=== PATIENT | female | born 1970 | race Caucasian/White ===

== ENCOUNTER 2017-08-24 13:02 | Outpatient (CLI) | payer BC ==
--- NOTE | 2017-08-24 16:21 | RAD ---
CHEST 2 VIEWS: HISTORY: Cough. COMPARISON: 08/18/13. FINDINGS: Cardiac silhouette and pulmonary vasculature are unremarkable. Mediastinum is midline. There is no confluent airspace consolidation, pneumothorax, or pleural fluid. IMPRESSION: No active cardiopulmonary abnormalities are demonstrated. POS: [facility]
== END 2017-08-24 13:03 | disposition home or self-care (01) ==
LOC: SCSRAD 13:02
PROVIDERS: ATTEND Family Medicine
DX: R05 Cough (principal); R06.2 Wheezing
CPT/HCPCS: 71046

== ENCOUNTER 2018-03-13 13:36 | Inpatient (IN) | payer BC ==
[2018-03-13] MEDS ORDERED: ISOVUE-370 76%-LOCM 1 ML ONE (14:13)
[2018-03-13 14:15] LABS: Bilirubin Negative (Negative); Blood, Urine Negative (Negative); Clarity CLEAR (Clear); Glucose, Urine (Dipstick) Negative (Negative); Leukocyte Negative (Negative); Nitrite Negative (Negative); Protein, Urine (Dipstick) Negative (Neg-Trace); Specific Gravity, Urine 1.004 (1.002-1.036); Urobilinogen 0.2 mg/dL (0.2-1.0); pH, Urine 6.5 (5.0-9.0)
[2018-03-13 14:24] LABS: Hemoglobin 12.9 g/dL (12.0-16.0); Mean Corpuscular HGB CONC 33.1 g/dL (32.0-36.0); Mean Corpuscular Hemoglobin 21.6 pg (27.0-31.0); Mean Corpuscular Volume 65.3 fL (78.0-98.0); Mean Platelet Volume 7.5 fL (7.4-10.4); Platelet Count 470 thou/uL (130-400); RBC Distribution Width 14.9 % (11.5-14.5); Red Blood Cell (RBC) Count 5.96 mill/uL (4.20-5.40); White Blood Cell (WBC) Count 17.3 thou/uL (4.8-10.8)
[2018-03-13 14:44] LABS: ALT (SGPT) 30 U/L (8-55); AST (SGOT) 21 U/L (5-34); Alkaline Phosphatase 93 U/L (40-150); Anion Gap 15 mmol/L (10-20); BUN (Urea Nitrogen) 12 mg/dL (7.0-18.7); Bilirubin, Total 0.9 mg/dL (0.2-1.2); Calc. Creatinine Clearance 0 mL/min (70-130); Calcium 9.6 mg/dL (7.8-10.44); Carbon Dioxide 24 mmol/L (22-29); Chloride 102 mmol/L (98-107); Estimated GFR-MDRD 85; Globulin 3.6 g/dL (2.4-3.5); Glucose 108 mg/dL (70-105); Lipase 17 U/L (8-78); Potassium 3.8 mmol/L (3.5-5.1); Protein, Total 7.6 g/dL (6.0-8.3); Sodium 137 mmol/L (136-145)
[2018-03-13 14:47] LABS: Anisocytosis SLIGHT = 6-15 cells (100X) (0-5/hpf); Band 2 % (5-11); Hypochromia SLIGHT = 6-15 cells (100X) (0-5/hpf); Lymphocytes 16 % (21-51); MDiff Complete? YES; Microcytosis SLIGHT = 6-15 cells (100X) (0-5/hpf); Monocytes 1 % (0-10); Neutrophil 79 % (42-75); Ovalocytes SLIGHT = 2-5 cells (100X) (0-1/hpf); PLT Morphology Comment Appears Increased; Polychromasia SLIGHT = 2-3 cells (100X) (0-2/hpf); Reactive Lymphocytes 2 % (0-10); Target Cells SLIGHT = 2-5 cells (100X) (0-1/hpf)
[2018-03-13] MEDS ORDERED: Morphine 4 MG/ML VIAL ONE ×3 (16:13→18:26)
[2018-03-13] MEDS ORDERED: cefOXitin 2 GM in Sodium Chloride 0.9% 100 ML IVPB SCH (18:45)
--- NOTE | 2018-03-13 19:04 | CT ---
CT ABDOMEN AND PELVIS WITH IV CONTRAST 03/13/18 HISTORY: Right lower quadrant abdominal pain with fever. Pain radiates to back. Stabbing pain which worsens up on movement. FINDINGS: The appendix is dilated measuring 13 mm with mild enhancement of the benoit of the appendix. There is an increased density focus seen within the proximal appendix which is probably related to an appendic olith as opposed to contrast. There is periappendiceal inflammatory stranding present. There is no fl uid collection seen to suggest an abscess, and no free intraperitoneal gas is present. Postsurgical change related to cholecystectomy are again present. The lung bases, liver, spleen, pancreas, bilateral adrenal glands, kidneys, and urinary bladder demon strate a normal CT appearance. Opacified small bowel is normal in appearance as well as normal in caliber. There is evidence of prio r hysterectomy. Mild degenerative changes are seen in the spine. IMPRESSION: 1. Acute appendicitis without evidence of abscess formation. 2. Post cholecystectomy changes. 3. Mild diminished attenuation of the liver. While noncontrast imaging was not performed, this c ould potentially be related to mild fatty infiltration of the liver. 4. Hysterectomy. 5. Above findings discussed with Dr. Rose on 03/13/18 at 1804 hours. POS: [facility]
[2018-03-13] MEDS ORDERED: Fentanyl 100 MCG/2 ML VIAL ONE ×3 (20:01→23:25)
[2018-03-13] MEDS ORDERED: HYDROmorphone 0.5 MG/0.5 ML SYRINGE ONE ×2 (20:34→21:09)
[2018-03-13] MEDS ORDERED: Bupivacaine/Epinephrine 0.25% 30 ML VIAL ONE (21:05)
[2018-03-13] MEDS ORDERED: Promethazine HCl 25 MG/ML VIAL ONE (21:09)
[2018-03-13] MEDS ORDERED: SUGAMMADEX SODIUM 200 MG/2 ML VIAL ONE (22:42)
[2018-03-13] MEDS ORDERED: Naloxone HCl 0.4 mg/ml Vial ONE (23:03)
[2018-03-13] MEDS ORDERED: Promethazine HCl 25 MG/ML VIAL SLOW IVP PRN (23:09)
[2018-03-13] MEDS ORDERED: Ondansetron HCl/PF 4 MG/2 ML Vial IVP PRN (23:09)
[2018-03-13] MEDS ORDERED: Promethazine HCl 25 MG/ML VIAL IM PRN (23:09)
[2018-03-14] MEDS ORDERED: Acetaminophen 325 MG TAB PO PRN (00:35)
[2018-03-14] MEDS ORDERED: Ondansetron HCl/PF 4 MG/2 ML Vial IVP PRN (00:35)
[2018-03-14] MEDS ORDERED: traMADol HCl 50 MG TAB PO PRN ×2 (00:35)
[2018-03-14] MEDS ORDERED: hydrALAZINE 20 MG/ML VIAL SLOW IVP PRN (00:35)
[2018-03-14] MEDS ORDERED: Promethazine HCl 25 MG/ML VIAL IM PRN (00:35)
[2018-03-14] MEDS ORDERED: Dextrose 5% in Water 1,000 ML IV PRN (00:35)
[2018-03-14] MEDS ORDERED: Dextrose 50% Abboject 50 ML SYRINGE SLOW IVP PRN (00:35)
[2018-03-14 00:39] VITALS: BMI 51.2
[2018-03-14] MEDS: Ketorolac Tromethamine 30 MG/ML VIAL IVP PRN ×2 (01:02→08:56)
[2018-03-14] MEDS: Sodium Chloride 0.9% 1,000 ML IV SCH ×2 (01:55→08:53)
[2018-03-14] MEDS: cefOXitin 2 GM in Sodium Chloride 0.9% 100 ML IVPB SCH ×2 (02:15→10:05)
[2018-03-14] MEDS: Morphine 4 MG/ML VIAL SLOW IVP PRN ×4 (02:20→12:19)
[2018-03-14] MEDS ORDERED: Famotidine/PF 20 mg/2ml Vial SLOW IVP SCH (09:00)
[2018-03-14 12:58] VITALS: BP 137/77; TEMP 98
--- NOTE | 2018-03-14 17:01 | OP ---
DATE OF PROCEDURE: 03/13/2018 PREOPERATIVE DIAGNOSIS: Acute appendicitis. POSTOPERATIVE DIAGNOSIS: Acute appendicitis. PROCEDURE PERFORMED: Laparoscopic appendectomy. SURGEON: Milton Adams MD. ANESTHESIA: General. ESTIMATED BLOOD LOSS: Minimal. COMPLICATIONS: None. SPECIMEN: Appendix. FINDINGS: Locally inflammatory appendicitis. TECHNIQUE: The patient was taken to the operating room and placed supine on the operating table. Af ter general anesthetic was obtained, the abdomen was shaved, prepped, and draped in a sterile fashion . A Carlin catheter had been placed. Straight incision made above the umbilicus. Cautery was used t o dissect down to and score the fascia. Abdominal cavity entered bluntly using a Tereza clamp. Holdi ng stitch of PDS placed on each side of the fascia. Stephens trocar was placed. High-flow pneumoperit oneum was obtained. A left lower quadrant 5-mm port and a right upper quadrant 5-mm port were placed under direct visualization. The patient had multiple adhesions in her abdomen from prior surgery. Her cecum was rolled over to reveal acute appendicitis. The cecum was mobilized using cautery and ab le to facilitate this. A small window was made at the base of the appendix and the mesoappendix. La paroscopic stapler was fired across the base of the appendix. A reload was fired across the mesoappe ndix. A bleeder on the staple line was clipped using laparoscopic clip device. There were localized inflammatory changes in the area of the right lower quadrant. Irrigated using warm sterile solution until returns are clear. All port sites were infiltrated using local anesthetic. All ports were re moved under camera visualization and pneumoperitoneum was let down. PDS was used to close the fascia l defect above the umbilicus. All incisions were irrigated and closed using 4-0 Monocryl and Dermabo nd. The patient was en route to recovery in stable condition. All instrument counts, needle counts, lap counts were correct.
--- NOTE | 2018-03-14 17:17 | HP ---
DATE OF SERVICE: 03/13/2018 CHIEF COMPLAINT: Lower abdominal pain. HISTORY OF PRESENT ILLNESS: This is a 47-year-old female who awoke at 1:00 in the morning with pain in her lower abdomen, described as 8/10 in sharp in the right lower quadrant associated with nausea, no vomiting. No fever, chills, or night sweats. She has never had this pain before. She denies his tory of inflammatory bowel disease. Seen in the emergency department where a CT scan has revealed ac franoc appendicitis. PAST MEDICAL HISTORY: Hypertension on clonidine, but off now that she has lost 60 pounds. PAST SURGICAL HISTORY: Includes hysterectomy and cholecystectomy. MEDICINES TAKEN DAILY: See list. ALLERGIES: CODEINE, HYDROCODONE, and PENICILLIN. SOCIAL HISTORY: No smoking, alcohol, or other drugs. REVIEW OF SYSTEMS: Ten system review of systems otherwise negative unless described above. PHYSICAL EXAMINATION: HEENT: Sclerae are anicteric. Oropharynx is clear. NECK: No lymphadenopathy. CHEST: Clear. HEART: Regular rate and rhythm. ABDOMEN: Soft, tender in the right lower quadrant with localized guarding and rebound tenderness. EXTREMITIES: No ischemia or edema to extremities. IMAGING DATA: CT scan reveals acute appendicitis. LABORATORY DATA: White blood cell count is 17 and hemoglobin is 12. Sodium is 137, potassium 3.8, a nd creatinine 0.73. ASSESSMENT: Acute appendicitis. PLAN: Laparoscopic appendectomy. Risks, benefits, and alternatives discussed. She gives consent. We will do this today.
--- NOTE | 2018-03-14 22:15 | DIS ---
DATE OF ADMISSION: 03/13/2018 DATE OF DISCHARGE: 03/14/2018 ADMISSION DIAGNOSIS: Acute appendicitis. DISCHARGE DIAGNOSIS: Acute appendicitis. PROCEDURES: Laparoscopic appendectomy by Dr. Adams without complication. CONDIION AT DISCHARGE: Improved. STAFF: Dr. Milton Adams. HOSPITAL COURSE: On postop day #1, the patient is doing well, tolerating regular food without diffic ulty, afebrile. One of two blood cultures on presentation are positive for MRSE. She is being sent home on Levaquin and Flagyl. She was given tramadol for pain as well as Phenergan for nausea. She w ill follow up with me in 2 weeks.
[2018-03-15] MEDS ORDERED: Famotidine 20 MG TAB PO SCH (09:00)
== END 2018-03-14 13:43 | disposition home or self-care (01) | DRG 343 ==
LOC: ERS 13:36 → SDC 18:41 → SURG A 21:41
PROVIDERS: ADMIT Surgery; ATTEND Surgery
PROC: 0DTJ4ZZ Resection of Appendix, Percutaneous Endoscopic Approach (ICD-10-PCS; principal; 2018-03-13)
DX: K35.80 Unspecified acute appendicitis (principal); I10 Essential (primary) hypertension
CPT/HCPCS: 36415; 74177; 80053; 81003; 83605; 83690; 85025; 87040; 87149; 88304; 96361; 96374; 96376; J0694; J1170; J1885; J2270; J2310; J2550; J3010; J7050; S0028

== ENCOUNTER 2018-03-29 12:17 | Emergency (ER) | payer BC ==
[2018-03-29 14:28] LABS: Hemoglobin 10.6 g/dL (12.0-16.0); Mean Corpuscular HGB CONC 31.5 g/dL (32.0-36.0); Mean Corpuscular Hemoglobin 20.3 pg (27.0-31.0); Mean Corpuscular Volume 64.5 fL (78.0-98.0); Mean Platelet Volume 4.9 fL (7.4-10.4); Platelet Count 724 thou/uL (130-400); RBC Distribution Width 11.8 % (11.5-14.5); Red Blood Cell (RBC) Count 5.21 mill/uL (4.20-5.40); White Blood Cell (WBC) Count 13.3 thou/uL (4.8-10.8)
[2018-03-29 14:31] LABS: #Basophils 0.1 thou/uL (0.0-0.2); #Eosinphils 0.5 thou/uL (0.0-0.7); #Lymphocytes 3.5 thou/uL (1.20-3.40); #Monocytes 1.1 thou/uL (0.11-0.59); #Neutrophils 8.2 thou/uL (1.40-6.50); %Eosinophils 3.6 % (0.0-10.0); %Lymphocytes 26.1 % (21.0-51.0); %Neutrophils 61.5 % (42.0-75.0); Hypochromia SLIGHT = 6-15 cells (100X) (0-5/hpf); MDiff Complete? YES; Microcytosis SLIGHT = 6-15 cells (100X) (0-5/hpf); PLT Morphology Comment Appears Increased
[2018-03-29 14:35] LABS: ALT (SGPT) 15 U/L (8-55); AST (SGOT) 16 U/L (5-34); Albumin 3.5 g/dL (3.5-5.0); Alkaline Phosphatase 74 U/L (40-150); Anion Gap 15 mmol/L (10-20); BUN (Urea Nitrogen) 14 mg/dL (7.0-18.7); Bilirubin, Total 0.4 mg/dL (0.2-1.2); Calc. Creatinine Clearance 0 mL/min (70-130); Calcium 9.6 mg/dL (7.8-10.44); Carbon Dioxide 25 mmol/L (22-29); Chloride 105 mmol/L (98-107); Estimated GFR-MDRD 89; Globulin 3.8 g/dL (2.4-3.5); Glucose 108 mg/dL (70-105); Lipase 24 U/L (8-78); Potassium 3.7 mmol/L (3.5-5.1); Protein, Total 7.3 g/dL (6.0-8.3); Sodium 141 mmol/L (136-145)
[2018-03-29] MEDS ORDERED: Morphine 4 MG/ML VIAL ONE (15:26)
[2018-03-29] MEDS ORDERED: Ondansetron HCl/PF 4 MG/2 ML Vial ONE (15:26)
[2018-03-29] MEDS ORDERED: Promethazine HCl 25 MG/ML VIAL ONE (15:56)
--- NOTE | 2018-03-29 16:45 | CT ---
CT ABDOMEN AND PELVIS WITH CONTRAST: INDICATIONS: Abdominal pain. Post appendectomy. COMPARISON: CT abdomen and pelvis from 03/13/2018. TECHNIQUE: Multiple axial tomograms obtained through the abdomen and pelvis with IV enhancement. Oral contrast was administered. FINDINGS: The lung base is clear. The liver, spleen, and pancreas are unremarkable. Post cholecystectomy change. The kidneys are unre markable. The small bowel loops appear unremarkable. Evidence of an appendectomy is noted. There are two surgical clips at the appendectomy site. There is surrounding mesenteric density, which could be postoperative. There is no evidence of fluid or ab scess collection. There is mild thickening of the cecal wall and some density associated with the an terior peritoneum on the right, all probably postoperative. No free fluid or blood in the abdomen or pelvis. IMPRESSION: Post appendectomy changes. There are postoperative changes without evidence of fluid or abscess jarocho ection. POS: [facility]
[2018-03-29 16:50] LABS: Bilirubin Negative (Negative); Blood, Urine Negative (Negative); Clarity Clear (Clear); Glucose, Urine (Dipstick) Negative (Negative); Leukocyte Negative (Negative); Nitrite Negative (Negative); Protein, Urine (Dipstick) Negative (Neg-Trace); Urobilinogen 0.2 mg/dL (0.2-1.0); pH, Urine 6.5 (5.0-9.0)
[2018-03-29 16:54] LABS: Specific Gravity, Urine 1.008 (1.002-1.036)
== END 2018-03-29 17:35 | disposition home or self-care (01) ==
LOC: SCSER 12:17
DX: G89.18 Other acute postprocedural pain (principal); D72.829 Elevated white blood cell count, unspecified; D47.3 Essential (hemorrhagic) thrombocythemia; D64.9 Anemia, unspecified; E66.9 Obesity, unspecified; J45.909 Unspecified asthma, uncomplicated; Z79.899 Other long term (current) drug therapy
CPT/HCPCS: 74177; 80053; 81003; 83605; 83690; 85025; 96365; 96366; 96375; J2270; J2405; J2550

== ENCOUNTER 2018-05-07 07:28 | Outpatient (CLI) | payer BC ==
[2018-05-07] MEDS ORDERED: Iopamidol 300 61% 100 ML VIAL FS ONE (09:00)
--- NOTE | 2018-05-07 10:10 | CT ---
CT ABDOMEN AND PELVIS WITH ORAL AND IV CONTRAST: HISTORY: A 47-year-old female with an appendectomy on 03/13/2018 with right lower quadrant pain radiating into the right upper quadrant, with associated fever. Concern for abscess formation. FINDINGS: There has been interval development of a small fluid collection in the anterior abdominal wall, in th e right lower quadrant, measuring 5.5 cm (transverse) x 1.5 cm (AP) x 2.5 cm (CC). This is suspiciou s for an abscess. The lung bases are clear. Changes of a cholecystectomy and an appendectomy are again seen. The live r, spleen, pancreas, adrenal glands, and kidneys are unremarkable. No free air, free fluid, or lymph adenopathy is seen in the abdomen or pelvis. There are vascular calcifications without evidence of a neurysmal dilatation of the abdominal aorta. Mild degenerative changes are seen in the spine. IMPRESSION: Findings suggestive of anterior abdominal wall abscess in the right lower quadrant. Discussed over the telephone with Dr. Lang Casanova at 8:38 a.m. CODE CR POS: [facility]
== END 2018-05-07 07:29 | disposition home or self-care (01) ==
LOC: SCSCT 07:28
PROVIDERS: ATTEND Family Medicine
DX: L02.91 Cutaneous abscess, unspecified (principal)
CPT/HCPCS: 74177

== ENCOUNTER 2018-05-10 08:50 | Outpatient (CLI) | payer BC ==
[2018-05-09 16:13] VITALS: BMI 50.5
[2018-05-10] MEDS ORDERED: Sodium Chloride 0.9% 10 ML ONE (09:16)
[2018-05-10] MEDS ORDERED: Sodium Bicarbonate 2.5 MEQ/5 ML VIAL ONE (10:10)
[2018-05-10] MEDS ORDERED: Lidocaine 1% PF 5 ML VIAL ONE (10:11)
[2018-05-10] MEDS ORDERED: Fentanyl 100 MCG/2 ML VIAL ONE (10:11)
[2018-05-10] MEDS ORDERED: Midazolam HCl 2 mg/2 ml Vial ONE (10:12)
[2018-05-10] MEDS ORDERED: Sodium Chloride 0.9% 20 ML ONE (10:17)
[2018-05-10 12:05] LABS: BF Color Gray; Clarity Cloudy/Turbid (Clear); Tube # EDTA
--- NOTE | 2018-05-10 15:29 | ULT ---
ABDOMINAL WALL FLUID COLLECTION ASPIRATION DONE UNDER ULTRASOUND: HISTORY: Abdominal wall fluid collection noted on CT of 05/07/2018. After informed consent was obtained, the patient as prepped and draped in the normal sterile fashion. Local anesthesia was obtained with 1% Xylocaine with sodium bicarb. Under ultrasound guidance, the 18-gauge spinal needle was introduced into the collection, but I could only aspirate approximately 1 cc. The needle was withdrawn and replaced with a 5 [place] GROUNDBOOTHeh catheter. A small skin incision was made with a #11 scalpel blade for introduction of the catheter. The catheter was introduced without difficulty. Approximately 6 cc of additional purulent material was obtained, but that was all that I could aspirate. There is still a fluid collection which measures approximately 1.5 cm in thickness and 6 cm in length. I did not attempt to put any type of drainage catheter as the material obtained was very thick and purulent and the very small size of the collection would make it difficult to int roduce a drainage catheter into the collection. If after antibiotics the patient still has persisten t pain and the collection persists, we could attempt a repeat aspiration if needed. IMPRESSION: Ultrasound-guided aspiration of approximately 7 cc of thick purulent material from the right-sided ab dominal wall abscess. POS: [facility]
== END 2018-05-10 11:55 | disposition home or self-care (01) ==
LOC: SDC 08:50
PROVIDERS: ATTEND Surgery
DX: K65.1 Peritoneal abscess (principal); K37 Unspecified appendicitis; D64.9 Anemia, unspecified; Z79.899 Other long term (current) drug therapy; Z88.0 Allergy status to penicillin; Z88.2 Allergy status to sulfonamides
CPT/HCPCS: 10022; 76942; 87070; 87076; 87205; 89051; J2001; J2250; J3010

== ENCOUNTER 2018-06-27 07:28 | Outpatient (CLI) | payer BC ==
[2018-06-27] MEDS ORDERED: Iopamidol 370 76% 100 ML VIAL ONE (09:00)
--- NOTE | 2018-06-27 10:57 | CT ---
CT ABDOMEN AND PELVIS WITH CONTRAST: HISTORY: Abscess. COMPARISON: CT abdomen and pelvis from 05/07/2018. FINDINGS: The lung bases are clear. No pericardial effusion. There is mild interval size decrease of the peripherally enhancing collection along the right rectus abdominis sheath, with the fluid collection measuring 3.1 x 2.1 x 2.2 cm. No new abscess. There is some mass effect upon the peritoneum, without intraperitoneal extension. Surgical clips along the cecal apex. Prior cholecystectomy. The liver, spleen, pancreas, and adrenal glands are unremarkable. No hydronephrosis. No abnormal re nal enhancing mass. No retroperitoneal or periaortic adenopathy. No acute osseous abnormality. Advanced degenerative ch anges of the pubic symphysis. IMPRESSION: Slight interval size decrease of the right rectus abdominis sheath abscess. POS: [facility]
== END 2018-06-27 07:29 | disposition home or self-care (01) ==
LOC: SCSCT 07:28
PROVIDERS: ATTEND Surgery
DX: L02.211 Cutaneous abscess of abdominal wall (principal)
CPT/HCPCS: 74177

== ENCOUNTER 2018-06-28 15:00 | Inpatient (IN) | payer BC ==
[~2018-06-28 15:00] MED LIST: Esmolol 100 MG/10 ML VIAL ONE; Glycopyrrolate 0.2 MG/ML 5 ML SYRINGE ONE; Metoclopramide HCl 10 MG/2 ML VIAL ONE; PROPOFOL 200 MG/20 ML VIAL ONE
[2018-06-28] MEDS ORDERED: Famotidine/PF 20 mg/2ml Vial ONE (16:30)
[2018-06-28] MEDS ORDERED: Scopolamine 1.5 mg/72 hour Patch ONE (16:30)
[2018-06-28] MEDS ORDERED: Bupivacaine HCl 0.5%/Epinephrine 1:200,000/PF 30 ml Vial ONE (16:46)
[2018-06-28] MEDS ORDERED: Midazolam HCl 2 mg/2 ml Vial ONE (16:50)
[2018-06-28] MEDS ORDERED: KETAMINE 100 MG/ML (5ML VIAL) ONE (16:51)
[2018-06-28] MEDS ORDERED: Lidocaine 2% PF 5 ML VIAL ONE (16:54)
[2018-06-28 16:58] LABS: Hemoglobin 12.7 g/dL (12.0-16.0); Mean Corpuscular HGB CONC 32.9 g/dL (32.0-36.0); Mean Corpuscular Hemoglobin 21.3 pg (27.0-31.0); Mean Corpuscular Volume 64.7 fL (78.0-98.0); Mean Platelet Volume 9.2 fL (7.4-10.4); Platelet Count 394 thou/uL (130-400); RBC Distribution Width 15.3 % (11.5-14.5); Red Blood Cell (RBC) Count 5.98 mill/uL (4.20-5.40); White Blood Cell (WBC) Count 10.8 thou/uL (4.8-10.8)
[2018-06-28] MEDS ORDERED: CEFAZOLIN 2 GM/50 ML BAG ONE (16:59)
[2018-06-28] MEDS ORDERED: Levofloxacin 500 mg/D5W 100 ml Premix Bag ONE (17:11)
[2018-06-28 17:14] LABS: Anion Gap 12 mmol/L (10-20); BUN (Urea Nitrogen) 16 mg/dL (7.0-18.7); Calc. Creatinine Clearance 0 mL/min (70-130); Calcium 9.7 mg/dL (7.8-10.44); Carbon Dioxide 27 mmol/L (22-29); Chloride 106 mmol/L (98-107); Estimated GFR-MDRD 89; Glucose 92 mg/dL (70-105); Potassium 4.1 mmol/L (3.5-5.1); Sodium 141 mmol/L (136-145)
[2018-06-28 17:20] LABS: #Basophils 0.1 thou/uL (0.0-0.2); #Eosinphils 0.5 thou/uL (0.0-0.7); #Lymphocytes 3.1 thou/uL (1.20-3.40); #Monocytes 0.7 thou/uL (0.11-0.59); #Neutrophils 6.4 thou/uL (1.40-6.50); %Basophils 1.3 % (0.0-1.0); %Eosinophils 4.7 % (0.0-10.0); %Lymphocytes 28.3 % (21.0-51.0); %Monocytes 6.5 % (0.0-10.0); %Neutrophils 59.3 % (42.0-75.0); Anisocytosis SLIGHT = 6-15 cells (100X) (0-5/hpf); Hypochromia SLIGHT = 6-15 cells (100X) (0-5/hpf); MDiff Complete? YES; Microcytosis SLIGHT = 6-15 cells (100X) (0-5/hpf); PLT Morphology Comment Appears Adequate; Poikilocytosis SLIGHT = 6-15 cells (100X) (0-5/hpf)
[2018-06-28] MEDS ORDERED: Fentanyl 100 MCG/2 ML VIAL ONE (18:30)
[2018-06-28] MEDS ORDERED: HYDROmorphone 2 MG/ML VIAL ONE ×2 (18:47→19:03)
[2018-06-28] MEDS ORDERED: Naloxone HCl 0.4 mg/ml Vial IV PRN (19:17)
[2018-06-28] MEDS ORDERED: Ondansetron PF 4 MG/2 ML Vial IVP PRN (19:17)
[2018-06-28] MEDS ORDERED: diphenhydrAMINE 25 MG CAP PO PRN (19:17)
[2018-06-28] MEDS ORDERED: diphenhydrAMINE 50 MG/ML VIAL IVP PRN (19:17)
[2018-06-28] MEDS ORDERED: HYDROmorphone 10 mg/100 ml CADD IVPB PRN (19:17)
[2018-06-28] MEDS ORDERED: Zolpidem Tartrate 5 MG TAB PO PRN (19:17)
[2018-06-28] MEDS ORDERED: diphenhydrAMINE 50 MG/ML VIAL IM PRN (19:17)
[2018-06-28] MEDS ORDERED: Communication Order-Pharmacy FS SCH (19:30)
[2018-06-28] MEDS ORDERED: Ondansetron ODT 4 MG TAB PO PRN (20:14)
[2018-06-28] MEDS ORDERED: hydrALAZINE 20 MG/ML VIAL SLOW IVP PRN (20:14)
[2018-06-28] MEDS ORDERED: Sodium Chloride 0.9% 1,000 ML IV SCH (20:15)
[2018-06-28] MEDS ORDERED: Acetaminophen 500 MG TAB PO PRN (20:17)
[2018-06-28] MEDS ORDERED: traMADol HCl 50 MG TAB PO PRN (20:17)
[2018-06-28] MEDS ORDERED: Ibuprofen 600 MG TAB PO PRN (20:17)
[2018-06-28] MEDS ORDERED: Enoxaparin Sodium 40 MG/0.4 ML SYRINGE SC SCH (21:00)
[2018-06-28] MEDS: Promethazine HCl 25 MG/ML VIAL IM PRN (21:55)
[2018-06-28 22:09] VITALS: BMI 49.7
[2018-06-28] MEDS: metroNIDAZOLE 500 MG TAB PO SCH (22:16)
--- NOTE | 2018-06-29 00:37 | OP ---
DATE OF PROCEDURE: 06/28/2018 PREOPERATIVE DIAGNOSIS: Rectus sheath abscess, refractory to nonsurgical management. POSTOPERATIVE DIAGNOSIS: Rectus sheath abscess, refractory to nonsurgical management. PROCEDURE PERFORMED: Drainage of right rectus sheath abscess. Culture and sensitivity submitted. Drain placed. ANESTHESIA: General with local 0.5% Marcaine with epinephrine 30 mL with 2% Xylocaine 10 mL. DESCRIPTION OF PROCEDURE: The patient was taken to the operating room where under general anesthesia, abdomen was prepared with ChloraPrep and draped in routine fashion. After reviewing her CAT scan and palpating her abdomen, I appreciated an area that I felt was indurated, although it was very difficult due to her morbid obesity. A vertical incision made paramedian right above the umbilicus, carried down through skin and subcutaneous tissue. An incision was made in anterior rectus sheath and I palpated an area of induration and split the rectus muscle medial and laterally identifying an indurated area that opened and there was purulent material that was evacuated, cultured, and irrigated. A 10-round JUANJO drain was placed percutaneously through an exit site laterally and secured with 3-0 nylon suture. OpSite and Mastisol applied. Wound was irrigated. Drain placed in optimal position. Anterior rectus sheath closed with 2 [id number] sutures of 0 PDS pop-offs. Subcutaneous tissues irrigated. Subcutaneous tissue was approximated with 3-0 Monocryl, skin with subdermal 4-0 Monocryl, and [place] glue applied. The patient tolerated the procedure well. Job ID: [id number]
--- NOTE | 2018-06-29 01:44 | HP ---
HISTORY OF PRESENT ILLNESS: Gillian Fields is a 47-year-old female, morbidly obese, status post remote laparoscopic cholecystectomy, more recent laparoscopic video appendectomy. I have been asked by Dr. Adams to drain a rectus sheath abscess that has failed attempts at percutaneous CT-guided drainage. Her appendectomy was 3 months ago. She is morbidly obese, 242 pounds. MEDICATIONS: 1. Hydrochlorothiazide. 2. Furosemide. 3. Multivitamins. 4. Levaquin. 5. Metronidazole. PAST MEDICAL HISTORY: Allergies, depression, anemia, appendectomy, and abdominal abscess. PAST SURGICAL HISTORY: Cholecystectomy, balloon sinuplasty, laparoscopic appendectomy on 03/13/2018. SOCIAL HISTORY: Tobacco, none. ALLERGIES: PENICILLIN, HIVES. CODEINE, ANXIETY. PHYSICAL EXAMINATION: VITAL SIGNS: Weight 242 pounds. HEAD, EARS, EYES, NOSE, AND THROAT: Unremarkable. LUNGS: Clear to auscultation. CARDIAC: Regular rate and rhythm without murmur or gallop. ABDOMEN: Soft. Tenderness in the right upper abdomen paramedian. No skin changes. ASSESSMENT AND PLAN: Rectus sheath abscess. I have reviewed her CAT scan and agree with Dr. 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 Job ID: [id number]
[2018-06-29] MEDS: Promethazine HCl 25 MG/ML VIAL IM PRN (01:58)
[2018-06-29] MEDS: traMADol HCl 50 MG TAB PO PRN ×2 (08:27→14:27)
[2018-06-29] MEDS: metroNIDAZOLE 500 MG TAB PO SCH ×2 (08:28→14:27)
[2018-06-29] MEDS ORDERED: Polyethylene Glycol 3350 17 GM Packet PO SCH (09:00)
[2018-06-29 11:59] VITALS: BP 145/77; TEMP 99.3
--- NOTE | 2018-06-29 15:06 | PRG ---
DATE OF SERVICE: 06/29/2018 SUBJECTIVE: Ms. Gillian Fields was scheduled to be discharged home postoperatively yesterday, but she insisted that "she is a redhead and requires more pain management than most people." She required a GREEN HOUSE MANAGER overnight, which has been discontinued this morning. This morning, her nurse informs me that the patient stated that she has oral morphine at home for pain. Today, the patient is doing well. She is tolerating her diet. GREEN HOUSE MANAGER has been discontinued early this morning. The patient insisted on antiemetics and Dr. Simpson was present and wrote a prescription for Phenergan for home use. OBJECTIVE: VITAL SIGNS: Temperature 99.0 degrees, pulse 89, blood pressure 145/77. Gram stain on the purulent material aspirated in the OR is negative to date. Cultures are pending. Drainage from the drain overnight. ABDOMEN: Soft, nontender. Wound looks healthy. The patient is instructed on drain care and will be discharged home today. I have given her prescription for Ultram #20 with two refills and she is instructed to take Tylenol and Motrin [id number] for pain and Ultram, if necessary. She was informed to see Dr. Adams next week. She was sent home with suture removal set to remove the drain should her drainage drop-off to negligible amounts prior to that office visit with Dr. Adams. Job ID: [id number]
--- NOTE | 2018-06-30 02:53 | DIS ---
DATE OF ADMISSION: 06/28/2018 DATE OF DISCHARGE: 06/29/2018 DISCHARGE DIAGNOSES: 1. Rectus sheath abscess refractory to nonsurgical management, status post laparoscopic appendectomy months prior. 2. Morbid obesity with 49 BMI. HISTORY: A 47-year-old female, Dr. Adams performed laparoscopic appendectomy on 03/14/2018. Since that time, she has presented for ultrasound-guided drainage, 05/10/2018 of this process that re-occurred. She had extreme pain when sitting in Dr. Adams's office on the day of admission yesterday. OR was not available for earlier intervention and the patient was having too much pain to wait until after the holidays thus, Dr. Adams asked me to take care of this problem. Recent CAT scan revealed a rectus abscess and it has been refractory to nonsurgical drainage. Plan is to drain this in the operating room. I assumed her care, took her to the operating room as an outpatient, drain this area through the anterior rectus sheath. Anterior rectus fascia identified an abscess draining purulent material, sent it for culture, Gram stain is negative today. She was to be discharged home with Levaquin, Flagyl, and Ultram, but she stated that she was having too much pain and that because she was a redhead, she required more pain than usual. Anesthesia agreed to a TRACK HELPER overnight, which was discontinued the morning of discharge and she is sent home with Levaquin, Flagyl for 7 days, Ultram for pain as refractory to [id number] Tylenol and Motrin. She is instructed on drain care. She is to follow up with Dr. Adams next week. She insisted on antiemetic and prior to my arrival today, Dr. Simpson wrote a prescription for Phenergan. Job ID: [id number]
== END 2018-06-29 15:19 | disposition home or self-care (01) | DRG 501 ==
LOC: SDC 15:00 → SURG B 19:00
PROVIDERS: ADMIT Specialist; ATTEND Specialist
PROC: 0K9K0ZZ Drainage of Right Abdomen Muscle, Open Approach (ICD-10-PCS; principal; 2018-06-28)
DX: M60.08 Infective myositis, other site (principal); Z68.42 Body mass index [BMI] 45.0-49.9, adult; G89.18 Other acute postprocedural pain; E66.01 Morbid (severe) obesity due to excess calories; Z90.49 Acquired absence of other specified parts of digestive tract; Z88.0 Allergy status to penicillin; Z88.8 Allergy status to other drugs, medicaments and biological substances
CPT/HCPCS: 36415; 74177; 80048; 85025; 85060; 87070; 87076; 87205; 96374; J0670; J1170; J1650; J1956; J2001; J2250; J2405; J2550; J3010; S0028

== ENCOUNTER 2019-04-02 06:57 | Day surgery (SDC) | payer BC ==
[2019-04-01 10:14] VITALS: BMI 49.1
--- NOTE | 2019-04-02 12:35 | OP ---
DATE OF PROCEDURE: 04/02/2019 PROCEDURES PERFORMED: Colonoscopy with snare polypectomy. MEDICATION: Given by Anesthesiology Department. PREPROCEDURE DIAGNOSIS: Positive stool base DNA test for colon screening (Cologuard). POSTPROCEDURE DIAGNOSES: 1. A 4 mm sigmoid polyp, status post polypectomy. 2. Otherwise, normal colon exam. DESCRIPTION OF PROCEDURE: Written consents were obtained prior to procedure. After adequate sedation, rectal exam was performed was normal. The endoscope was advanced to cecum. The quality of the bowel prep was good. The appendiceal orifice and the ileocecal valve were visualized, appeared normal. The cecum, ascending colon, hepatic flexure, transverse colon, splenic flexure, and descending colon, all appeared normal. In the lower sigmoid colon, a semi-sessile 4 mm polyp was noted. This was removed with a cold snare and retrieved. The rectal vault appeared normal including retroflexion. The patient tolerated the procedure well. ASSESSMENT: 1. Small sigmoid polyp, status post polypectomy. 2. Otherwise, normal colon exam. RECOMMENDATION: 1. Await biopsy result. 2. Next surveillance colonoscopy will be based on pathology report. Job ID: [id number]
== END 2019-04-02 10:50 | disposition home or self-care (01) ==
LOC: SDC 06:57
PROVIDERS: ATTEND Internal Medicine Gastroenterology
PROC: 0DBN8ZZ Excision of Sigmoid Colon, Via Natural or Artificial Opening Endoscopic (ICD-10-PCS; principal; 2019-04-02)
DX: K63.5 Polyp of colon (principal); Z88.0 Allergy status to penicillin; Z88.5 Allergy status to narcotic agent; Z88.8 Allergy status to other drugs, medicaments and biological substances; Z91.040 Latex allergy status
CPT/HCPCS: 88305

== ENCOUNTER 2023-05-17 15:49 | Outpatient (CLI) | payer BC | END 2023-05-17 15:50 | disposition home or self-care (01) | LOC: BICMAMMO 15:49 | PROVIDERS: ATTEND Family Medicine | DX: Z12.31 Encounter for screening mammogram for malignant neoplasm of breast (principal); Z80.3 Family history of malignant neoplasm of breast | CPT/HCPCS: 77063; 77067 ==